=== PATIENT | female | born 1980 | race African-American/Black ===

== ENCOUNTER 2018-09-29 19:39 | Emergency (ER) | payer BC | END 2018-09-29 20:38 | disposition home or self-care (01) | LOC: SCSER 19:39 | DX: L02.211 Cutaneous abscess of abdominal wall (principal); E11.9 Type 2 diabetes mellitus without complications; F17.210 Nicotine dependence, cigarettes, uncomplicated; Z79.4 Long term (current) use of insulin | CPT/HCPCS: 10061; 87070; 87205 ==

== ENCOUNTER 2019-09-27 16:11 | Emergency (ER) | payer BC ==
[2019-09-27] MEDS ORDERED: Ketorolac Tromethamine 30 MG/ML VIAL ONE (16:35)
--- NOTE | 2019-09-27 16:52 | RAD ---
Right shoulder 3 views HISTORY: Right shoulder pain. COMPARISON: 12/03/2015. FINDINGS: Acromioclavicular and glenohumeral alignment are maintained with mild to moderate osteophyt osis. Very small well-corticated ossification immediately inferior to the acromioclavicular joint is again demonstrated. Small area of dystrophic calcifications associated with the distal aspect of t he rotator cuff on the internal rotation view. No acute fracture, dislocation, or aggressive osseous erosions. IMPRESSION: No acute osseous abnormalities are demonstrated. Osteoarthritic changes somewhat pronounced for the patient's age. Possible small intracapsular loose body at the axillary recess.
== END 2019-09-27 17:07 | disposition home or self-care (01) ==
LOC: ERS 16:11
DX: S40.011A Contusion of right shoulder, initial encounter (principal); E11.9 Type 2 diabetes mellitus without complications; F17.210 Nicotine dependence, cigarettes, uncomplicated; X58.XXXA Exposure to other specified factors, initial encounter; Z79.84 Long term (current) use of oral hypoglycemic drugs
CPT/HCPCS: 96372; J1885

== ENCOUNTER 2024-09-01 11:09 | Inpatient (IN) | payer BC ==
[2024-09-01] MEDS ORDERED: Sodium Chloride 0.9% 100 ML ONE (11:41)
[2024-09-01] MEDS ORDERED: Cefepime 2 GM VIAL ONE (11:41)
[2024-09-01] MEDS ORDERED: Morphine 4 MG/ML VIAL ONE (11:41)
[2024-09-01 11:49] LABS: #Basophils 0.03 10x3/uL (0.0-0.2); #Eosinophils Less than 0.03 10x3/uL (0.0-0.7); %Basophils 0.2 % (0.0-1.0); %Eosinophils 0.2 % (0.0-10.0); %Lymphocytes 8.6 % (21.0-51.0); %Monocytes 6.7 % (0.0-10.0); %Neutrophils 83.8 % (42.0-75.0); Hematocrit 26.3 % (36.0-47.0); Hemoglobin 8.4 g/dL (12.0-16.0); Mean Corpuscular HGB CONC 31.8 g/dL (32.0-36.0); Mean Corpuscular Hemoglobin 24.6 pg (27.0-31.0); Mean Corpuscular Volume 77.4 fL (78.0-98.0); Mean Platelet Volume 10.7 fL (7.4-10.4); Platelet Count 131 10x3/uL (130-400); RBC Distribution Width 17.3 % (11.5-14.5); Red Blood Cell (RBC) Count 3.41 mill/uL (4.20-5.40)
[2024-09-01 11:55] LABS: ALT (SGPT) 6 U/L (8-55); AST (SGOT) 19 U/L (5-34); Albumin 2.4 g/dL (3.5-5.0); Alkaline Phosphatase 85 U/L (40-110); Anion Gap 12 mmol/L (10-20); BUN (Urea Nitrogen) 10 mg/dL (7.0-18.7); Bilirubin, Total 0.6 mg/dL (0.2-1.2); Calc. Creatinine Clearance 0 mL/min (70-130); Calcium 7.9 mg/dL (7.8-10.44); Carbon Dioxide 23 mmol/L (22-29); Chloride 98 mmol/L (98-107); Estimated GFR 106; Globulin 5.4 g/dL (2.4-3.5); Glucose 260 mg/dL (70-105); Lipase 10 U/L (8-78); Potassium 3.3 mmol/L (3.5-5.1); Protein, Total 7.8 g/dL (6.0-8.3); Sodium 130 mmol/L (136-145)
[2024-09-01 11:56] LABS: Actual Bicarbonate (HCO3v) 25.7 mEq/L (22-28); Base Excess 2.1 mEq/L (-2.0 to +3.0); Calcium, Ionized (venous) 0.97 mmol/L (1.16-1.32); Chloride (VBG) 98 mmol/L (98-106); Hematocrit-VBG 28 % (36.0-47.0); Hemoglobin (Hb) 9.4 g/dL (11.7-15.5); Potassium (VBG) 3.32 mmol/L (3.70-5.30); Sodium 131 mmol/L (133-146); pH (venous) 7.473 (7.32-7.43)
[2024-09-01 11:59] LABS: Troponin I Less than 0.010 ng/mL (< 0.028)
[2024-09-01] MEDS ORDERED: Iopamidol-370 76% 500 ML MDV (1 ML CHARGE) ONE (12:20)
[2024-09-01 12:31] LABS: BHCG - Serum Negative (NEGATIVE); Pregs Control Background? CLEAR/WHITE (CLR/WHITE); Pregs Control Bar Appear? YES (CONTROL BAR)
[2024-09-01] MEDS ORDERED: Acetaminophen 500 MG TAB ONE (14:02)
[2024-09-01] MEDS ORDERED: Dextrose 50% Abboject 50 ML SYRINGE SLOW IVP PRN (16:10)
[2024-09-01] MEDS ORDERED: Dextrose 5% in Water 1,000 ML IV PRN (16:10)
[2024-09-01] MEDS ORDERED: Glucagon 1 MG/ML KIT IM PRN (16:10)
[2024-09-01] MEDS ORDERED: Insulin Regular, Human 100 UNIT/ML 10 ML VIAL SC PRN (16:18)
[2024-09-01 16:47] LABS: Bacteria/HPF None Seen HPF (None Seen); Bilirubin Negative (Negative); Blood, Urine 1+ (Negative); CAUTI Indications for Culture Dysuria,urgency,freq; Clarity Clear (Clear); Glucose, Urine (Dipstick) 300 mg/dL (Negative); Ketone, Urine Negative (Negative); Leukocyte Negative Leu/uL (Negative); Nitrite Negative (Negative); Protein, Urine (Dipstick) 30 mg/dL (Neg-Trace); Squamous Epithelial 0-3 HPF (0-3); Urobilinogen Normal mg/dL (Less than 2); WBC/HPF 0-3 HPF (0-3); pH, Urine 6.5 (5.0-9.0)
[2024-09-01 16:48] LABS: Specific Gravity, Urine 1.062 (1.002-1.036); Urine Culture Reflex No No
[2024-09-01] MEDS: Vancomycin (BATCH) 2.5 GM in Premix 1 BAG IVPB SCH (16:54)
[2024-09-01] MEDS: Azithromycin 500 MG in Sodium Chloride 0.9% 250 ML 250 ML IVPB SCH (17:07)
[2024-09-01] MEDS: Lactated Ringer's 1,000 ML IV SCH (17:08)
[2024-09-01 17:59] VITALS: BMI 41.0
[2024-09-01 18:00] LABS: Legionella Urinary Ag Negative (Negative); Strep pneumo Urine Ag NEGATIVE (NEGATIVE)
[2024-09-01 18:35] LABS: Iron 10 ug/dL (50-170); Iron Binding Capacity, Total 228 mcg/dL (265-497)
[2024-09-01 19:04] LABS: Ferritin 98.48 ng/mL (10-291)
[2024-09-01] MEDS: Insulin Lispro 100 UNIT/ML 10 ML VIAL SC PRN (20:29)
[2024-09-01] MEDS: cefTRIAXone\\ROCEPHIN 1 GM in Sodium Chloride 0.9% 100 ML IVPB SCH (20:30)
[2024-09-01] MEDS: Pregabalin 50 MG CAP PO SCH (20:31)
[2024-09-01] MEDS: Calcium Carbonate 500 MG ChewTAB PO PRN (20:33)
[2024-09-01] MEDS: Ipratropium/Albuterol 3 ML NEB NEB SCH (20:37)
[2024-09-01] MEDS: Insulin Glargine 30 UNITS/0.3 ML VIAL SC SCH (23:23)
[2024-09-02] MEDS: Acetaminophen 325 MG TAB PO PRN (00:10)
[2024-09-02 05:21] LABS: #Basophils Less than 0.03 10x3/uL (0.0-0.2); %Basophils 0.1 % (0.0-1.0); %Eosinophils 0.2 % (0.0-10.0); %Lymphocytes 9.2 % (21.0-51.0); %Monocytes 6.5 % (0.0-10.0); %Neutrophils 83.3 % (42.0-75.0); Hematocrit 26.1 % (36.0-47.0); Mean Corpuscular HGB CONC 30.7 g/dL (32.0-36.0); Mean Corpuscular Hemoglobin 24.5 pg (27.0-31.0); Mean Corpuscular Volume 80.1 fL (78.0-98.0); Platelet Count 274 10x3/uL (130-400); RBC Distribution Width 17.5 % (11.5-14.5); Red Blood Cell (RBC) Count 3.26 mill/uL (4.20-5.40)
[2024-09-02 05:54] LABS: ALT (SGPT) 8 U/L (8-55); AST (SGOT) 16 U/L (5-34); Albumin 2.2 g/dL (3.5-5.0); Alkaline Phosphatase 83 U/L (40-110); Anion Gap 13 mmol/L (10-20); BUN (Urea Nitrogen) 10 mg/dL (7.0-18.7); Bilirubin, Total 0.5 mg/dL (0.2-1.2); Calc. Creatinine Clearance 133 mL/min (70-130); Calcium 7.8 mg/dL (7.8-10.44); Carbon Dioxide 22 mmol/L (22-29); Chloride 102 mmol/L (98-107); Estimated GFR 95; Globulin 5.3 g/dL (2.4-3.5); Glucose 189 mg/dL (70-105); Potassium 3.2 mmol/L (3.5-5.1); Protein, Total 7.5 g/dL (6.0-8.3); Sodium 134 mmol/L (136-145)
[2024-09-02] MEDS: Insulin Lispro 100 UNIT/ML 10 ML VIAL SC PRN (06:28)
[2024-09-02] MEDS: Potassium Chloride 20 MEQ TAB PO SCH (08:41)
[2024-09-02] MEDS: Carvedilol 25 MG TAB PO SCH (08:44)
[2024-09-02] MEDS: Amlodipine 5 MG TAB PO SCH (08:44)
[2024-09-02] MEDS: Atorvastatin Calcium 40 MG TAB PO SCH (08:45)
[2024-09-02] MEDS: Lisinopril 20 MG TAB PO SCH (08:46)
[2024-09-02] MEDS: Empagliflozin 10 MG TAB PO SCH (08:46)
[2024-09-02] MEDS: Enoxaparin 40 MG (0.4 mL) SYRINGE SC SCH (08:46)
[2024-09-02] MEDS: Pantoprazole DR 40 MG TAB PO SCH (08:47)
[2024-09-02] MEDS: Aspirin Chewable 81 MG TAB PO SCH (08:56)
[2024-09-02] MEDS: Ibuprofen 600 MG TAB PO PRN (17:34)
[2024-09-02] MEDS ORDERED: Benzonatate 100 MG CAP PO PRN (19:18)
[2024-09-02] MEDS: cefTRIAXone\\ROCEPHIN 2 GM in Sodium Chloride 0.9% 100 ML IVPB SCH (20:10)
[2024-09-02] MEDS: GUAIFENESIN SF SOLN 200 MG/10 ML UDCUP PO PRN (23:48)
[2024-09-03 05:44] LABS: #Basophils 0.03 10x3/uL (0.0-0.2); %Basophils 0.3 % (0.0-1.0); %Eosinophils 1.5 % (0.0-10.0); %Lymphocytes 11.8 % (21.0-51.0); %Monocytes 6.6 % (0.0-10.0); %Neutrophils 78.9 % (42.0-75.0); Hematocrit 25.1 % (36.0-47.0); Hemoglobin 7.4 g/dL (12.0-16.0); Mean Corpuscular HGB CONC 29.5 g/dL (32.0-36.0); Mean Corpuscular Hemoglobin 23.9 pg (27.0-31.0); Mean Corpuscular Volume 81.2 fL (78.0-98.0); Platelet Count 314 10x3/uL (130-400); RBC Distribution Width 17.9 % (11.5-14.5); Red Blood Cell (RBC) Count 3.09 mill/uL (4.20-5.40)
[2024-09-03 06:28] LABS: ALT (SGPT) 6 U/L (8-55); AST (SGOT) 16 U/L (5-34); Alkaline Phosphatase 84 U/L (40-110); Anion Gap 14 mmol/L (10-20); BUN (Urea Nitrogen) 10 mg/dL (7.0-18.7); Bilirubin, Total 0.4 mg/dL (0.2-1.2); Calc. Creatinine Clearance 153 mL/min (70-130); Calcium 7.9 mg/dL (7.8-10.44); Carbon Dioxide 22 mmol/L (22-29); Chloride 104 mmol/L (98-107); Estimated GFR 110; Globulin 5.3 g/dL (2.4-3.5); Glucose 108 mg/dL (70-105); Potassium 3.4 mmol/L (3.5-5.1); Protein, Total 7.3 g/dL (6.0-8.3); Sodium 137 mmol/L (136-145)
[2024-09-03] MEDS: Potassium Chloride 20 MEQ TAB PO SCH (08:15)
[2024-09-03] MEDS: Ipratropium/Albuterol 3 ML NEB NEB PRN (12:33)
[2024-09-03] MEDS: Sodium Ferric Gluconate 250 MG in Sodium Chloride 0.9% 250 ML 250 ML IVPB SCH (12:35)
[2024-09-03 15:10] LABS: Actual Bicarbonate (HCO3v) 25.8 mEq/L (22-28); Base Excess 1.9 mEq/L (-2.0 to +3.0); Calcium, Ionized (venous) 1.01 mmol/L (1.16-1.32); Chloride (VBG) 103 mmol/L (98-106); Hematocrit-VBG 24 % (36.0-47.0); Hemoglobin (Hb) 8.2 g/dL (11.7-15.5); Potassium (VBG) 3.32 mmol/L (3.70-5.30); Sodium 136 mmol/L (133-146); pH (venous) 7.461 (7.32-7.43)
[2024-09-03] MEDS: Ketorolac Tromethamine 30 MG (1 mL) VIAL IVP SCH (17:54)
[2024-09-04 05:49] LABS: #Basophils 0.03 10x3/uL (0.0-0.2); %Basophils 0.3 % (0.0-1.0); %Eosinophils 1.2 % (0.0-10.0); %Monocytes 6.4 % (0.0-10.0); %Neutrophils 80.8 % (42.0-75.0); Hematocrit 25.4 % (36.0-47.0); Hemoglobin 7.6 g/dL (12.0-16.0); Mean Corpuscular HGB CONC 29.9 g/dL (32.0-36.0); Mean Corpuscular Volume 80.1 fL (78.0-98.0); Mean Platelet Volume 10.5 fL (7.4-10.4); Platelet Count 338 10x3/uL (130-400); RBC Distribution Width 17.5 % (11.5-14.5); Red Blood Cell (RBC) Count 3.17 mill/uL (4.20-5.40)
[2024-09-04 06:54] LABS: ALT (SGPT) 12 U/L (8-55); AST (SGOT) 19 U/L (5-34); Anion Gap 13 mmol/L (10-20); BUN (Urea Nitrogen) 9 mg/dL (7.0-18.7); Bilirubin, Total 0.3 mg/dL (0.2-1.2); Calc. Creatinine Clearance 144 mL/min (70-130); Calcium 8.2 mg/dL (7.8-10.44); Carbon Dioxide 22 mmol/L (22-29); Chloride 105 mmol/L (98-107); Estimated GFR 105; Globulin 5.3 g/dL (2.4-3.5); Glucose 181 mg/dL (70-105); Potassium 3.5 mmol/L (3.5-5.1); Protein, Total 7.3 g/dL (6.0-8.3); Sodium 136 mmol/L (136-145)
[2024-09-04 07:28] LABS: Alkaline Phosphatase 119 U/L (40-110)
[2024-09-04] MEDS: Ferrous Sulfate 325 MG TAB PO SCH (08:06)
[2024-09-04] MEDS: Enoxaparin 40 MG (0.4 mL) SYRINGE SC SCH (08:08)
[2024-09-04] MEDS: Ketorolac Tromethamine 30 MG (1 mL) VIAL IVP SCH ×2 (09:14→17:48)
[2024-09-04] MEDS: DULoxetine 60 MG CAP PO SCH (11:31)
[2024-09-05 00:05] VITALS: TEMP 98.1
[2024-09-05 06:23] LABS: #Basophils 0.03 10x3/uL (0.0-0.2); %Basophils 0.3 % (0.0-1.0); %Eosinophils 2.4 % (0.0-10.0); %Lymphocytes 14.3 % (21.0-51.0); %Monocytes 7.4 % (0.0-10.0); %Neutrophils 74.8 % (42.0-75.0); Hematocrit 24.8 % (36.0-47.0); Hemoglobin 7.3 g/dL (12.0-16.0); Mean Corpuscular HGB CONC 29.4 g/dL (32.0-36.0); Mean Corpuscular Volume 81.6 fL (78.0-98.0); Mean Platelet Volume 9.3 fL (7.4-10.4); Platelet Count 362 10x3/uL (130-400); Red Blood Cell (RBC) Count 3.04 mill/uL (4.20-5.40)
[2024-09-05 06:39] LABS: ALT (SGPT) 12 U/L (8-55); AST (SGOT) 19 U/L (5-34); Alkaline Phosphatase 92 U/L (40-110); Anion Gap 13 mmol/L (10-20); BUN (Urea Nitrogen) 5 mg/dL (7.0-18.7); Bilirubin, Total 0.3 mg/dL (0.2-1.2); Calc. Creatinine Clearance 179 mL/min (70-130); Calcium 8.3 mg/dL (7.8-10.44); Carbon Dioxide 24 mmol/L (22-29); Chloride 105 mmol/L (98-107); Estimated GFR 115; Globulin 5.5 g/dL (2.4-3.5); Glucose 81 mg/dL (70-105); Potassium 3.6 mmol/L (3.5-5.1); Protein, Total 7.5 g/dL (6.0-8.3); Sodium 138 mmol/L (136-145)
[2024-09-05] MEDS: DULoxetine 60 MG CAP PO SCH (09:31)
[2024-09-05 09:35] VITALS: BP 150/82
[2024-09-05] MEDS: Promethazine 25 MG TAB PO SCH (12:40)
== END 2024-09-05 14:20 | disposition home or self-care (01) | DRG 177 ==
LOC: ERS 11:09 → T4-A 16:42
PROVIDERS: ADMIT Internal Medicine; ATTEND Internal Medicine
DX: J15.8 Pneumonia due to other specified bacteria (principal); J96.01 Acute respiratory failure with hypoxia; R65.10 Systemic inflammatory response syndrome (SIRS) of non-infectious origin without acute organ dysfunction; E87.1 Hypo-osmolality and hyponatremia; I69.354 Hemiplegia and hemiparesis following cerebral infarction affecting left non-dominant side; E87.6 Hypokalemia; D50.9 Iron deficiency anemia, unspecified; K21.9 Gastro-esophageal reflux disease without esophagitis; F17.210 Nicotine dependence, cigarettes, uncomplicated; E11.9 Type 2 diabetes mellitus without complications; E78.5 Hyperlipidemia, unspecified; Z79.899 Other long term (current) drug therapy; Z79.82 Long term (current) use of aspirin; Z79.4 Long term (current) use of insulin; Z79.1 Long term (current) use of non-steroidal anti-inflammatories (NSAID); Z79.84 Long term (current) use of oral hypoglycemic drugs; Z79.02 Long term (current) use of antithrombotics/antiplatelets
CPT/HCPCS: 36415; 36416; 70450; 70496; 70498; 70551; 71045; 71275; 74177; 80053; 81001; 82607; 82728; 82805; 83540; 83550; 83605; 83690; 83735; 83880; 84145; 84484; 84703; 85025; 87040; 87086; 87428; 87449; 87899; 93005; 94640; 94760; 96374; 96375; J0456; J0692; J0696; J1650; J1815; J1885; J2272; J2916; J3370; J7050; J7120; J7620; Q0169; Q9967

== ENCOUNTER 2024-09-20 11:23 | Emergency (ER) | payer BC, SELFPAY ==
[2024-09-20] MEDS ORDERED: HYDROcodone/Acetaminophen 5/325 mg Tablet ONE (14:26)
== END 2024-09-20 14:32 | disposition home or self-care (01) ==
LOC: ERS 11:23
DX: R51.9 Headache, unspecified (principal); M79.605 Pain in left leg; E11.9 Type 2 diabetes mellitus without complications; I10 Essential (primary) hypertension; F17.210 Nicotine dependence, cigarettes, uncomplicated; K21.9 Gastro-esophageal reflux disease without esophagitis; Z79.4 Long term (current) use of insulin; Z79.84 Long term (current) use of oral hypoglycemic drugs; Z86.73 Personal history of transient ischemic attack (TIA), and cerebral infarction without residual deficits; Z79.02 Long term (current) use of antithrombotics/antiplatelets; Z79.899 Other long term (current) drug therapy
CPT/HCPCS: 99282

== ENCOUNTER 2024-10-26 10:51 | Inpatient (IN) | payer OTHER, SELFPAY ==
[2024-10-26 11:07] LABS: #Basophils 0.05 10x3/uL (0.0-0.2); %Basophils 0.5 % (0.0-1.0); %Eosinophils 1.1 % (0.0-10.0); %Lymphocytes 24.3 % (21.0-51.0); %Monocytes 6.8 % (0.0-10.0); Hemoglobin 10.2 g/dL (12.0-16.0); Mean Corpuscular Hemoglobin 24.5 pg (27.0-31.0); Mean Corpuscular Volume 81.5 fL (78.0-98.0); Mean Platelet Volume 9.6 fL (7.4-10.4); Platelet Count 328 10x3/uL (130-400); RBC Distribution Width 17.8 % (11.5-14.5); Red Blood Cell (RBC) Count 4.17 mill/uL (4.20-5.40)
[2024-10-26 11:28] LABS: Troponin I 0.014 ng/mL (< 0.028)
[2024-10-26 11:42] LABS: ALT (SGPT) 9 U/L (Less than 34); AST (SGOT) 14 U/L (11-34); Albumin 3.3 g/dL (3.1-4.5); Alkaline Phosphatase 193 U/L (40-110); Anion Gap 14 mmol/L (10-20); BUN (Urea Nitrogen) 10 mg/dL (7.0-18.7); Bilirubin, Total 0.2 mg/dL (0.3-1.2); Calc. Creatinine Clearance 0 mL/min (70-130); Calcium 8.8 mg/dL (7.8-10.44); Carbon Dioxide 23 mmol/L (22-29); Chloride 95 mmol/L (98-107); Estimated GFR 103; Glucose 624 mg/dL (70-105); Potassium 4.1 mmol/L (3.5-5.1); Protein, Total 8.3 g/dL (6.0-8.3); Sodium 128 mmol/L (136-145)
[2024-10-26] MEDS ORDERED: Nitroglycerin 2% Ointment 1 INCH/1 GM Packet ONE (12:20)
[2024-10-26] MEDS ORDERED: Ketorolac Tromethamine 30 MG (1 mL) VIAL ONE (12:20)
[2024-10-26] MEDS ORDERED: Furosemide 40 MG (4 mL) VIAL ONE (12:20)
[2024-10-26] MEDS ORDERED: Insulin Regular, Human 100 UNIT/ML 10 ML VIAL ONE (12:20)
[2024-10-26 14:30] LABS: Bacteria/HPF None Seen HPF (None Seen); Bilirubin Negative (Negative); Blood, Urine Trace (Negative); CAUTI Indications for Culture < 2yrs of age; Clarity Clear (Clear); Glucose, Urine (Dipstick) Greater than 1000 mg/dL (Negative); Ketone, Urine Negative (Negative); Leukocyte Negative Leu/uL (Negative); Nitrite Negative (Negative); Protein, Urine (Dipstick) Negative (Neg-Trace); RBC/HPF 0-3 HPF (0-3); Squamous Epithelial 0-3 HPF (0-3); Urobilinogen Normal mg/dL (Less than 2); WBC/HPF 0-3 HPF (0-3)
[2024-10-26 14:32] LABS: Urine Culture Reflex Yes Yes
[2024-10-26] MEDS ORDERED: Iopamidol-370 76% 500 ML MDV (1 ML CHARGE) ONE (15:18)
[2024-10-26] MEDS ORDERED: Enoxaparin 100 MG (1 mL) SYRINGE ONE (16:00)
[2024-10-26] MEDS ORDERED: Bisacodyl 5 MG TAB PO PRN (17:07)
[2024-10-26] MEDS ORDERED: Ondansetron ODT 4 MG TAB PO PRN (17:07)
[2024-10-26] MEDS ORDERED: Senokot S 8.6-50 MG TAB PO PRN (17:07)
[2024-10-26] MEDS ORDERED: Acetaminophen 325 MG TAB PO PRN (17:07)
[2024-10-26] MEDS ORDERED: Dextrose 50% Abboject 50 ML SYRINGE SLOW IVP PRN (17:14)
[2024-10-26] MEDS ORDERED: Glucagon 1 MG/ML KIT IM PRN (17:14)
[2024-10-26] MEDS ORDERED: Insulin Regular, Human 100 UNIT/ML 10 ML VIAL SC PRN (17:14)
[2024-10-26] MEDS ORDERED: Dextrose 5% in Water 1,000 ML IV PRN (17:14)
[2024-10-26] MEDS ORDERED: Pregabalin 50 MG CAP PO SCH (21:00)
[2024-10-26] MEDS: Ibuprofen 200 MG TAB PO SCH (21:45)
[2024-10-26] MEDS: Insulin Glargine 30 UNITS/0.3 ML VIAL SC SCH (21:46)
[2024-10-27 00:45] VITALS: BMI 41.5
[2024-10-27] MEDS: Acetaminophen/Codeine 30-300mg Tablet PO SCH (01:25)
[2024-10-27 06:35] LABS: #Basophils 0.06 10x3/uL (0.0-0.2); %Basophils 0.6 % (0.0-1.0); %Eosinophils 1.3 % (0.0-10.0); %Lymphocytes 23.3 % (21.0-51.0); %Monocytes 8.8 % (0.0-10.0); %Neutrophils 65.7 % (42.0-75.0); Hematocrit 34.5 % (36.0-47.0); Hemoglobin 10.3 g/dL (12.0-16.0); Mean Corpuscular HGB CONC 29.9 g/dL (32.0-36.0); Mean Corpuscular Hemoglobin 24.4 pg (27.0-31.0); Mean Corpuscular Volume 81.8 fL (78.0-98.0); Mean Platelet Volume 9.7 fL (7.4-10.4); Platelet Count 318 10x3/uL (130-400); RBC Distribution Width 18.1 % (11.5-14.5); Red Blood Cell (RBC) Count 4.22 mill/uL (4.20-5.40)
[2024-10-27 07:07] LABS: ALT (SGPT) 10 U/L (Less than 34); AST (SGOT) 26 U/L (11-34); Alkaline Phosphatase 94 U/L (40-110); Anion Gap 13 mmol/L (10-20); BUN (Urea Nitrogen) 9 mg/dL (7.0-18.7); Bilirubin, Total 0.2 mg/dL (0.3-1.2); Calc. Creatinine Clearance 175 mL/min (70-130); Calcium 8.5 mg/dL (7.8-10.44); Carbon Dioxide 21 mmol/L (22-29); Chloride 102 mmol/L (98-107); Estimated GFR 114; Globulin 4.9 g/dL (2.4-3.5); Glucose 282 mg/dL (70-105); Potassium 4.5 mmol/L (3.5-5.1); Protein, Total 7.9 g/dL (6.0-8.3); Sodium 131 mmol/L (136-145)
[2024-10-27] MEDS: Insulin Lispro 100 UNIT/ML 10 ML VIAL SC PRN (08:34)
[2024-10-27] MEDS: Amlodipine 5 MG TAB PO SCH (08:41)
[2024-10-27] MEDS: Carvedilol 6.25 MG TAB PO SCH (08:41)
[2024-10-27] MEDS: Pantoprazole 40 MG DR.TAB PO SCH (08:41)
[2024-10-27] MEDS: Lisinopril 20 MG TAB PO SCH (08:41)
[2024-10-27] MEDS: DULoxetine 60 MG CAP PO SCH (08:42)
[2024-10-27] MEDS: Apixaban 5 MG TAB PO SCH (08:42)
[2024-10-27] MEDS: Atorvastatin Calcium 40 MG TAB PO SCH (08:42)
[2024-10-27] MEDS ORDERED: Empagliflozin 10 MG TAB PO SCH (09:00)
[2024-10-28] MEDS: Ferrous Sulfate 325 MG TAB PO SCH (08:38)
[2024-10-28 10:01] LABS: #Basophils 0.04 10x3/uL (0.0-0.2); %Basophils 0.3 % (0.0-1.0); %Eosinophils 0.6 % (0.0-10.0); %Lymphocytes 14.2 % (21.0-51.0); %Monocytes 6.7 % (0.0-10.0); %Neutrophils 77.7 % (42.0-75.0); Hematocrit 36.6 % (36.0-47.0); Hemoglobin 10.9 g/dL (12.0-16.0); Mean Corpuscular HGB CONC 29.8 g/dL (32.0-36.0); Mean Corpuscular Hemoglobin 24.1 pg (27.0-31.0); Mean Corpuscular Volume 80.8 fL (78.0-98.0); Mean Platelet Volume 9.8 fL (7.4-10.4); Platelet Count 221 10x3/uL (130-400); RBC Distribution Width 18.5 % (11.5-14.5); Red Blood Cell (RBC) Count 4.53 mill/uL (4.20-5.40)
[2024-10-28 10:24] LABS: ALT (SGPT) 8 U/L (Less than 34); AST (SGOT) 20 U/L (11-34); Alkaline Phosphatase 83 U/L (40-110); Anion Gap 12 mmol/L (10-20); BUN (Urea Nitrogen) 9 mg/dL (7.0-18.7); Bilirubin, Total 0.4 mg/dL (0.3-1.2); Calc. Creatinine Clearance 172 mL/min (70-130); Calcium 8.6 mg/dL (7.8-10.44); Carbon Dioxide 23 mmol/L (22-29); Chloride 105 mmol/L (98-107); Estimated GFR 113; Globulin 4.8 g/dL (2.4-3.5); Glucose 91 mg/dL (70-105); Potassium 3.7 mmol/L (3.5-5.1); Protein, Total 7.8 g/dL (6.0-8.3); Sodium 136 mmol/L (136-145)
[2024-10-29 06:16] LABS: #Basophils 0.04 10x3/uL (0.0-0.2); %Basophils 0.4 % (0.0-1.0); %Eosinophils 0.6 % (0.0-10.0); %Lymphocytes 18.9 % (21.0-51.0); %Monocytes 7.8 % (0.0-10.0); Hematocrit 35.4 % (36.0-47.0); Hemoglobin 10.7 g/dL (12.0-16.0); Mean Corpuscular HGB CONC 30.2 g/dL (32.0-36.0); Mean Corpuscular Hemoglobin 24.3 pg (27.0-31.0); Mean Corpuscular Volume 80.5 fL (78.0-98.0); Mean Platelet Volume 9.3 fL (7.4-10.4); Platelet Count 321 10x3/uL (130-400); RBC Distribution Width 18.4 % (11.5-14.5)
[2024-10-29 06:38] LABS: ALT (SGPT) 7 U/L (Less than 34); AST (SGOT) 18 U/L (11-34); Albumin 2.9 g/dL (3.1-4.5); Alkaline Phosphatase 78 U/L (40-110); Anion Gap 10 mmol/L (10-20); BUN (Urea Nitrogen) 12 mg/dL (7.0-18.7); Bilirubin, Total 0.4 mg/dL (0.3-1.2); Calc. Creatinine Clearance 162 mL/min (70-130); Calcium 8.4 mg/dL (7.8-10.44); Carbon Dioxide 25 mmol/L (22-29); Chloride 104 mmol/L (98-107); Estimated GFR 112; Globulin 4.8 g/dL (2.4-3.5); Glucose 177 mg/dL (70-105); Potassium 3.7 mmol/L (3.5-5.1); Protein, Total 7.7 g/dL (6.0-8.3); Sodium 135 mmol/L (136-145)
[2024-10-30 05:49] LABS: #Basophils 0.04 10x3/uL (0.0-0.2); %Basophils 0.3 % (0.0-1.0); %Eosinophils 0.8 % (0.0-10.0); %Lymphocytes 15.9 % (21.0-51.0); %Monocytes 8.3 % (0.0-10.0); %Neutrophils 74.3 % (42.0-75.0); Hematocrit 32.2 % (36.0-47.0); Hemoglobin 9.8 g/dL (12.0-16.0); Mean Corpuscular HGB CONC 30.4 g/dL (32.0-36.0); Mean Corpuscular Hemoglobin 24.9 pg (27.0-31.0); Mean Corpuscular Volume 81.7 fL (78.0-98.0); Mean Platelet Volume 9.6 fL (7.4-10.4); Platelet Count 294 10x3/uL (130-400); RBC Distribution Width 18.6 % (11.5-14.5); Red Blood Cell (RBC) Count 3.94 mill/uL (4.20-5.40)
[2024-10-30 06:24] LABS: ALT (SGPT) Less than 7 U/L (Less than 34); AST (SGOT) 17 U/L (11-34); Albumin 2.7 g/dL (3.1-4.5); Alkaline Phosphatase 74 U/L (40-110); Anion Gap 11 mmol/L (10-20); BUN (Urea Nitrogen) 15 mg/dL (7.0-18.7); Bilirubin, Total 0.3 mg/dL (0.3-1.2); Calc. Creatinine Clearance 142 mL/min (70-130); Calcium 8.3 mg/dL (7.8-10.44); Carbon Dioxide 24 mmol/L (22-29); Chloride 105 mmol/L (98-107); Estimated GFR 101; Globulin 4.6 g/dL (2.4-3.5); Glucose 224 mg/dL (70-105); Potassium 3.9 mmol/L (3.5-5.1); Protein, Total 7.3 g/dL (6.0-8.3); Sodium 136 mmol/L (136-145)
[2024-10-30 17:10] VITALS: BP 102/61; TEMP 97.5
[2024-10-30] MEDS ORDERED: Apixaban 5 MG TAB PO SCH (21:00)
== END 2024-10-30 18:05 | disposition home or self-care (01) | DRG 300 ==
LOC: ERS 10:51 → SURG B 17:06
PROVIDERS: ADMIT Student in an Organized Health Care Education/Training Program; ATTEND Student in an Organized Health Care Education/Training Program
DX: I82.441 Acute embolism and thrombosis of right tibial vein (principal); E87.1 Hypo-osmolality and hyponatremia; E11.65 Type 2 diabetes mellitus with hyperglycemia
CPT/HCPCS: 36415; 36416; 71045; 71275; 80053; 81001; 82010; 83690; 83880; 84484; 85025; 85379; 87086; 93005; 93970; 96372; 96374; 96375; J1650; J1815; J1885; J1940; Q9967